=== PATIENT | female | born 1955 | race Caucasian/White ===

== ENCOUNTER → 2016-08-20 | Outpatient (CLI) | payer BC ==
[~2016-08-20] MED LIST: LORTAB 5/500 501 TAB PO; VICODIN 5/500 T1 TAB PO
--- NOTE | 2016-08-20 15:15 | CARDIOVASCULAR REPORT ---
"Cerebrovascular Exam Indications: 785.9 Bruit. IMPRESSIONS 1. The bilateral vertebral arteries are patent with normal antegrade flow. 2. Study suggests less than 20% stenosis involving the right internal carotid artery. 3. Study suggests 20-49% stenosis involving the left internal carotid artery. Carotid duplex study. Complete study and Doppler flow study including spectral analysis, color and matias scale imaging. Height: Height: 162.6cm. Height: 64in. Weight: Weight: 90.7kg. Weight: 199.6lb. Body mass index: BMI: 34.3kg/m^2. Body surface area: BSA: 2.06m^2. Patient status: Outpatient. Incidental findings: A thyroid cyst in the right lobe is noted incidentally. Tables: Arterial flow: + +--------+--------+ |Location |V sys |V ed | + +--------+--------+ |Right CCA - proximal|78.9cm/s|17.1cm/s| + +--------+--------+ |Right CCA - distal |68.9cm/s|18.7cm/s| + +--------+--------+ |Right ECA |112cm/s |--------| + +--------+--------+ |Right ICA - proximal|82.7cm/s|34.2cm/s| + +--------+--------+ |Right ICA - mid |82.2cm/s|31.4cm/s| + +--------+--------+ |Right ICA - distal |91cm/s |28.7cm/s| + +--------+--------+ |Right vertebral |36.8cm/s|--------| + +--------+--------+ |Left CCA - proximal |81.6cm/s|16.5cm/s| + +--------+--------+ |Left CCA - distal |71.1cm/s|19.3cm/s| + +--------+--------+ |Left ECA |104cm/s |--------| + +--------+--------+ |Left ICA - proximal |84cm/s |19.2cm/s| + +--------+--------+ |Left ICA - mid |86.9cm/s|27.1cm/s| + +--------+--------+ |Left ICA - distal |98.7cm/s|35.8cm/s| + +--------+--------+ |Left vertebral |40.3cm/s|--------| + +--------+--------+ Velocity ratios: + + + + + + | |Right, V sys|Right, V ed|Left, V sys|Left, V ed| + + + + + + |Max ICA/dist CCA|1.32 |1.83 |1.39 |1.85 | + + + + + + (Report amended ) Electronically signed by: Archie Gallardo [id number]"
--- NOTE | 2016-08-21 16:25 | RADIOLOGY REPORT PS360 ---
PROCEDURE: 2-D M-mode and color Doppler study INDICATIONS FOR THE TEST: Chest pain COPD Heart MurmurX Tobacco Smoking Palpitations Fatigue Syncope Edema HypertensionXDiabetes Mellitus Rheumatic Fever SOBXDOEXObesityXHyperlipidemia Family History HD Additional History PATIENT INFORMATION HEIGHT: 64 WEIGHT:200 GENDER: Female B/P:160/74 2-D/M-MODE INTERPRETATION: 2-D MEASUREMENTS OBSERVED VALUES IN CMS Right Ventricular Dimension (RVDd) 2.2 Interventricular Septum (Thickness)(IVsd) 1.2 Left Ventricular Internal Dimensions(LVIDd) 4.9 Left Ventricular Posterior Wall (Thickness)(LVPWd) 1.2 Aortic Root 3.0 Aortic Cusp Separation 1.9 Left Atrial Dimensions (LAD) 3.3 2D 1. Left atrium is qualitatively mildly enlarged, left ventricle is normal size, there is mild concentric left ventricular hypertrophy present, visually estimated ejection fraction 55% with no obvious regional wall motion abnormality. 2. The right atrium and right ventricle are normal size and contractility. 3. The aortic valve is minimally thickened and calcified. 4. The mitral and tricuspid valve are structurally normal. 5. The pulmonic valve is not well visualized. 6. No significant pericardial effusion noted. DOPPLER INTERROGATION: Doppler interrogation of the aortic mitral and tricuspid valvular presence of mild mitral and tricuspid regurgitation, tricuspid and jet velocity insufficient for calculation of the right ventricular systolic pressure, grade 1 diastolic dysfunction seen without tissue Doppler evidence of raised left atrial pressure. The aortic outflow velocities mildly increased, does not represent any difficulty aortic stenosis. CONCLUSION: 1. Mildly enlarged left atrium, normal left ventricle size, mild concentric left ventricular hypertrophy, visually estimated ejection fraction 55% with no obvious regional wall motion abnormality, grade 1 diastolic dysfunction seen without tissue Doppler evidence of raised left atrial pressure. 2. Mild mitral and tricuspid regurgitation. 3. Mildly increased velocity across the aortic valve does not represent significant aortic stenosis. 4. No significant pericardial effusion noted.
== END ==
LOC: RT 13:55
DX: R09.89 Other specified symptoms and signs involving the circulatory and respiratory systems (principal); R01.1 Cardiac murmur, unspecified

== ENCOUNTER → 2016-12-05 | Outpatient (CLI) | payer BC ==
[2016-12-05 19:32] LABS: AMPHETAMINES/METAMPHETAMINES NEGATIVE ng/mL (<1000)
== END ==
LOC: LAB 18:54
PROVIDERS: Nurse Practitioner Family
DX: Z79.899 Other long term (current) drug therapy (principal)